=== PATIENT | male | born 1995 | race Caucasian/White ===

== ENCOUNTER → 2017-02-13 | Outpatient (CLI) | payer OTHER ==
[~2017-02-13] MED LIST: CEPHALEXIN500 M1 PO; MOTRIN 600600 MG/TAB PO; NORCO 325 MG-51 TAB PO; NORCO 325 MG-7.1 TAB PO; PROZAC40 MG PO
[2017-02-13 19:11] LABS: HEMATOCRIT 41.6 % (42.0-52.0); HEMOGLOBIN 14.1 g/dl (13.5-18.0); MEAN CELL VOLUME 86 fl (80.0-100.0); MEAN CORPUSCULAR HEMOGLOBIN 29 pg (27.0-31.0); MEAN CORPUSCULAR HGB CONC 34 g/dl (33.0-37.0); PLATELET COUNT 237 K/mm3 (130-400); RED BLOOD COUNT 4.83 M/mm3 (4.20-5.60); WHITE BLOOD COUNT 9.3 K/mm3 (4.8-10.8)
[2017-02-13 19:21] LABS: ADJUSTED CALCIUM 9.3 mg/dL (8.4-10.2); BILIRUBIN,TOTAL 0.6 mg/dL (0.0-1.0); CALCIUM 9.3 mg/dL (8.4-10.2); CREATININE, serum 0.9 mg/dL (0.66-1.25); POTASSIUM 4.3 mmol/L (3.4-5.0); TOTAL PROTEIN 6.2 gm/dL (6.4-8.2)
== END ==
LOC: COL.LAB 18:52
PROVIDERS: Family Medicine
DX: R19.5 Other fecal abnormalities (principal)

== ENCOUNTER 2017-03-28 20:23 | Emergency (ER) | payer OTHER ==
[~2017-03-28] VITALS: Ht 177.8 cm; Wt 70.5 kg
[~2017-03-28 20:23] MED LIST changes: -CEPHALEXIN500 M1 PO; -NORCO 325 MG-7.1 TAB PO; -PROZAC40 MG PO
[2017-03-28 20:24] VITALS: TEMP 98.6
[2017-03-28] MEDS ORDERED: PROZAC40 MG PO (20:27)
[2017-03-28 22:34] VITALS: BP 115/79; PULSE 69
[2017-03-29] MEDS ORDERED: CEPHALEXIN500 M1 PO (14:12)
[2017-03-29] MEDS ORDERED: NORCO 325 MG-7.1 TAB PO (14:12)
== END 2017-03-28 22:39 | disposition home or self-care (01) ==
LOC: COL.ER 20:23
DX: S76.121A Laceration of right quadriceps muscle, fascia and tendon, initial encounter (principal); S83.8X1A Sprain of other specified parts of right knee, initial encounter; S81.011A Laceration without foreign body, right knee, initial encounter; S80.811A Abrasion, right lower leg, initial encounter; V18.0XXA Pedal cycle driver injured in noncollision transport accident in nontraffic accident, initial encounter; Y92.830 Public park as the place of occurrence of the external cause; Z23 Encounter for immunization
CPT/HCPCS: J0690; J2270; L1830

== ENCOUNTER 2017-03-29 08:44 | Day surgery (SDC) | payer OTHER ==
[2017-03-29] VITALS (8 sets, daily range): BP systolic 119–138; BP diastolic 73–90; PULSE 65–83; TEMP 98–98.5
[~2017-03-29] VITALS: Ht 175.3 cm; Wt 70.5 kg
[~2017-03-29 08:44] MED LIST changes: +PROZAC40 MG PO
[2017-03-29] MEDS ORDERED: CEPHALEXIN500 M1 PO (14:12)
[2017-03-29] MEDS ORDERED: NORCO 325 MG-7.1 TAB PO (14:12)
== END 2017-03-29 15:00 | disposition home or self-care (01) ==
LOC: SDCO 08:44 → SURG 09:12 → SDCO 15:00
DX: S76.121A Laceration of right quadriceps muscle, fascia and tendon, initial encounter (principal); V18.4XXA Pedal cycle driver injured in noncollision transport accident in traffic accident, initial encounter; Y93.55 Activity, bike riding; Y92.9 Unspecified place or not applicable
CPT/HCPCS: OP; J0690; J1100; J1885; J2250; J2270; J2405; J2704; J2795; J3010; J7120